=== PATIENT | male | born 1990 | race Caucasian/White ===

== ENCOUNTER 2016-07-31 22:51 | Emergency (ER) | payer MEDICAID ==
[2016-07-31 23:07] VITALS: TEMP 98.2
[2016-07-31] MEDS ORDERED: NS 1,000 ML IV ONE (23:17)
[2016-07-31] MEDS ORDERED: LET GEL TOPICAL 1 EA SYR TP ONE ×2 (23:25→23:31)
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
[2016-08-01 00:31] VITALS: RESP 14; O2SAT 96
[2016-08-01 00:43] VITALS: BP 114/70; PULSE 70
[2016-08-01] MEDS ORDERED: IBUPROFEN 200 MG TAB PO ONE (00:55)
== END 2016-08-05 13:23 | disposition home or self-care (01) ==
PROC: 0HQ1XZZ Repair Face Skin, External Approach (ICD-10-PCS; principal; 2016-07-31)
DX: S06.0X1A Concussion with loss of consciousness of 30 minutes or less, initial encounter (principal); S01.111A Laceration without foreign body of right eyelid and periocular area, initial encounter; Y08.89XA Assault by other specified means, initial encounter; Y99.8 Other external cause status; Y93.01 Activity, walking, marching and hiking

== ENCOUNTER 2016-11-17 14:37 | Emergency (ER) | payer MEDICAID ==
--- NOTE | 2016-11-17 14:59 | EDPHY ---
H & P Time Seen by Provider: 11/17/16 14:49 HPI/ROS: Chief complaint. Arm injury HPI. 26-year-old male playing soccer last night stepped on the ball and fell on his left elbow. It was not on outstretched arm. It hurts to move. It is swollen. N0 head injury or loss of consciousness. No neck pain. No previous injury to the left elbow. He is right handed ROS Constitutional. no fever/chills, no weakness Eyes. no problems with vision ENT. no sore throat, no nasal drainage Cardiovascular. no chest pain Respiratory. no shortness of breath, no cough Abdominal. no abdominal pain, no nausea/vomiting, no diarrhea . no problems urinating MS. left elbow pain and swelling Skin. no rash Lymph. no swollen glands Neuro. no headache, no dizziness, no difficulty walking or with speech Past Medical/Surgical History: Healthy Social History: , nonsmoker, no alcohol Smoking Status: Never smoked Physical Exam: General Appearance: Alert well-developed male mild distress vital signs stable though initial heart rate 120 Eyes: Pupils equal and round no pallor or injection. ENT, Mouth: Mucous membranes are moist. Respiratory: There are no retractions, lungs are clear to auscultation. Cardiovascular: Regular rate and rhythm. Gastrointestinal: Abdomen is soft and nontender, no masses, bowel sounds normal. Neurological: Awake and alert, sensory and motor exams grossly normal. Skin: Warm and dry, no rashes. Musculoskeletal: Neck is supple nontender. Extremities left elbow is diffusely swollen and diffusely tender. No obvious deformity. Inability to extend the arm completely. Pain with supination and pronation. No tenderness to shoulder or wrist Psychiatric: Patient is oriented X 3, there is no agitation. Constitutional: Initial Vital Signs Temperature (C) 37.1 C 11/17/16 14:48 Heart Rate 120 H 11/17/16 14:48 Respiratory Rate 16 11/17/16 14:48 Blood Pressure 168/89 H 11/17/16 14:48 O2 Sat (%) 96 11/17/16 14:48 O2 Delivery Mode Room Air Allergies/Adverse Reactions: vancomycin Allergy (Verified 06/07/15 01:18) Red Man Syndrome Home Medications: Medication Instructions Recorded Hydrocodone/APAP 5/325 [[place] 1 - 2 tab PO Q4H PRN #14 tab 08/01/16 5/325 (*)] Ondansetron Odt [Zofran Odt 4 mg 4 mg PO Q6 PRN #12 tab 08/01/16 (*)] Hydrocodone/APAP 5/325 [[place] 1 each PO Q4-6PRN PRN #14 tab 11/17/16 5/325 (*)] Medical Decision Making - Diagnostics Imaging Results: Imaging Impressions Elbow X-Ray 11/17/16 14:56 Impression: Equivocal small joint effusion, with no acute osseous abnormality. If there is a high clinical concern regarding an occult fracture, conservative management then short-term repeat radiographic follow-up in 7-14 days should be considered. X-ray left elbow reviewed by me. No obvious fractures seen. There is a posterior fat pad present. I suspect the patient has a radial head fracture that is occult. Procedures: Posterior long-arm splint is placed and then patient is placed in a sling. Post splint application reviewed by me shows good anatomic position and distal motor vascular sensitivity to be intact ED Course/Re-evaluation: Patient remained stable. The patient and I discussed imaging study results, treatment plan including criteria for return importance of follow-up and further evaluation. He expresses understanding and agreement Differential Diagnosis: I considered fracture, dislocation, sprain. Patient clinically has a radial head fracture though no fracture is identified on the x-ray. However he has restriction of supination and pronation as well as a joint effusion and posterior fat pad finding on elbow x-ray. Departure - Departure Disposition: Home, Routine, Self-Care Clinical Impression: Radial head fracture, closed Qualifiers: Encounter type: initial encounter Laterality: left Condition: Good Instructions: Elbow Fracture (ED) Additional Instructions: Ice to left elbow next 24-48 hours. Splint and sling for 7-10 days and then re- evaluation by CHUCK Bowen. Ibuprofen 600 mg every 6 hours for pain. Hydrocodone in addition as needed for discomfort. Return for worsening symptoms. Referrals: Aggie Amor PA [Primary Care Provider] - 5-7 days, call for appt. Prescriptions: Hydrocodone/APAP 5/325 [[place] 5/325 (*)] 1 each PO Q4-6PRN PRN #14 tab PRN Reason: Pain, Moderate
[2016-11-17] MEDS ORDERED: IBUPROFEN 600 MG TAB PO ONE (15:34)
[2016-11-17 16:03] VITALS: BP 160/90; PULSE 110; RESP 18; TEMP 98.1; O2SAT 99
== END 2016-11-17 16:02 | disposition home or self-care (01) ==
DX: S52.122A Displaced fracture of head of left radius, initial encounter for closed fracture (principal); W19.XXXA Unspecified fall, initial encounter; Y99.8 Other external cause status; Y93.66 Activity, soccer
CPT/HCPCS: A4565

== ENCOUNTER 2017-04-13 13:22 | Emergency (ER) | payer MEDICAID ==
[2017-04-13 13:29] VITALS: BP 131/78; PULSE 100; RESP 18; TEMP 98.1; O2SAT 96
--- NOTE | 2017-04-13 16:04 | EDPHY ---
CHUCK Addendum - Addendum .: This patient left prior to being seen.
== END 2017-04-13 15:10 | disposition left against medical advice (07) ==
DX: Z53.21 Procedure and treatment not carried out due to patient leaving prior to being seen by health care provider (principal)